=== PATIENT | male | born 1990 | race Caucasian/White ===

== ENCOUNTER 2018-03-05 20:14 | Emergency (ER) | payer MEDICAID ==
[~2018-03-05] VITALS: Ht 170.2 cm; Wt 77.1 kg
[~2018-03-05 20:14] MED LIST: CEPH500 PO; HYDACE5 PO; IBUP400 PO; IBUP600 PO; IBUP800 PO; LIDO2L MM; OXYACE5T PO; PROM25 PO
== END 2018-03-06 01:12 | disposition home or self-care (01) ==
LOC: ER 20:14
DX: S01.81XA Laceration without foreign body of other part of head, initial encounter (principal); S00.531A Contusion of lip, initial encounter; W01.198A Fall on same level from slipping, tripping and stumbling with subsequent striking against other object, initial encounter; F17.200 Nicotine dependence, unspecified, uncomplicated; Z79.891 Long term (current) use of opiate analgesic; Z79.899 Other long term (current) drug therapy
CPT/HCPCS: 12013; 90714; 96372; 99283